=== PATIENT | female | born 1995 | race Caucasian/White ===

== ENCOUNTER 2017-05-22 19:51 | Emergency (ER) | payer OTHER ==
[2017-05-22 20:08] VITALS: BP 98/59
--- NOTE | 2017-05-22 20:26 | UC ---
Abdominal Pain Female HPI - HPI Summary HPI Summary: Pt presents with diarrhea. She tells me that she developed fever and chills - thought she had the flu. These went away after 24 hours. Monday night she developed lower abdominal cramping and had loose stools. Monday she continued with abdominal cramping and diarrhea. Since monday she has had watery diarrhea ~6 times a day accompanied by lower abdominal cramping. The cramping is relieved with a bowel movement and by using a heating pad on her lower abdomen. She is still eating and drinking as usual - admits to eating lentils and high fiber foods even with the diarrhea. No vomiting. No return of the fever or chills. Denies SOB, chest pain, vomiting, nausea, blood in her stool, dysuria, vaginal discharge/odor/pain. - History of Current Complaint Chief Complaint: UCGI Stated Complaint: DIARRHEA, AND ABDOMINAL PAIN Time Seen by Provider: 05/22/17 20:09 Hx Obtained From: Patient Hx Last Menstrual Period: 12/31/16 Onset/Duration: Sudden Onset Timing: Intermittent Episodes Lasting: Severity Initially: Moderate Severity Currently: Moderate Pain Intensity: 6 Pain Scale Used: 0-10 Numeric Location: Other - Lower abdomen Radiates: No Character: Cramping Alleviating Factor(s): Bowel Movement Allergies/Adverse Reactions: Allergies Allergy/AdvReac Type Severity Reaction Status Date / Time No Known Allergies Allergy Verified 05/22/17 20:08 Home Medications: Home Medications NK [No Home Medications Reported] 05/22/17 [History Confirmed 05/22/17] PMH/Surg Hx/FS Hx/Imm Hx Previously Healthy: Yes - Surgical History Surgical History: Yes Surgery Procedure, Year, and Place: wisdom teeth - Family History Known Family History: Positive: None - Social History Occupation: Employed Full-time Lives: Alone Alcohol Use: Occasionally Substance Use Type: Marijuana Smoking Status (MU): Never Smoked Tobacco Review of Systems Constitutional: Negative Skin: Negative Respiratory: Negative Cardiovascular: Negative Gastrointestinal: Diarrhea Genitourinary: Negative Musculoskeletal: Negative Neurological: Negative Psychological: Negative All Other Systems Reviewed And Are Negative: Yes Physical Exam Triage Information Reviewed: Yes Appearance: Well-Appearing, No Pain Distress, Well-Nourished Vital Signs: Initial Vital Signs Temp 98.7 F 05/22/17 20:03 Pulse 69 05/22/17 20:03 Resp 18 05/22/17 20:03 BP 98/59 05/22/17 20:03 Pulse Ox 100 05/22/17 20:03 Vital Signs Reviewed: Yes Neck: Positive: Supple, Nontender, No Lymphadenopathy Respiratory: Positive: Lungs clear, Normal breath sounds, No respiratory distress, No accessory muscle use Cardiovascular: Positive: RRR, No Murmur, Pulses Normal Abdomen Description: Positive: Nontender, No Organomegaly, Soft. Negative: CVA Tenderness (R), CVA Tenderness (L), Distended, Guarding, Hepatomegaly, McBurney' s Point Tenderness, Peritoneal Signs, Splenomegaly Bowel Sounds: Positive: Present Neurological: Positive: Alert Psychological: Positive: Age Appropriate Behavior Skin: Negative: rashes Abd Pain Female Course/Dx - Course Course Of Treatment: UA negative. I suspect her diarrhea is due to a viral origin as she is afebrile and her abdominal exam was NTTP. I will send for stool cultures and have her try a BRAT diet with an increase in water intake. - Differential Dx/Diagnosis Provider Diagnoses: Diarrhea Discharge - Discharge Plan Condition: Stable Disposition: HOME Patient Education Materials: Acute Diarrhea (ED) Referrals: No Primary Care Phys,NOPCP [Primary Care Provider] - Additional Instructions: If you develop a fever, shortness of breath, chest pain, new or worsening symptoms - please call your PCP or go to the ED. 1) May try imodium OTC for your diarrhea and drink plenty of water! 2) Please return the stool culture as soon as possible and we will call you with results. 3) Try a diet with little fiber - rice, bananas, applesauce, crackers/toast
== END 2017-05-22 20:52 | disposition home or self-care (01) ==
LOC: UCEAST 19:51
DX: R19.7 Diarrhea, unspecified (principal)
CPT/HCPCS: 81003; 99211; G0463